=== PATIENT | male | born 1955 | race Hispanic/Latino ===

== ENCOUNTER → 2019-06-12 | Outpatient (CLI) | payer OTHER ==
[2019-06-12 13:40] VITALS: BP 116/71
== END | disposition home or self-care (01) ==
LOC: WHH 09:45
PROVIDERS: ATTEND Podiatrist Foot & Ankle Surgery
DX: E11.621 Type 2 diabetes mellitus with foot ulcer (principal); L97.511 Non-pressure chronic ulcer of other part of right foot limited to breakdown of skin; E11.42 Type 2 diabetes mellitus with diabetic polyneuropathy; E11.51 Type 2 diabetes mellitus with diabetic peripheral angiopathy without gangrene; F17.200 Nicotine dependence, unspecified, uncomplicated; Z95.1 Presence of aortocoronary bypass graft; Z95.0 Presence of cardiac pacemaker
CPT/HCPCS: A4450; A6021; G0463

== ENCOUNTER → 2019-06-19 | Outpatient (CLI) | payer OTHER ==
[2019-06-19 12:22] VITALS: BP 128/75
== END | disposition home or self-care (01) ==
LOC: WHH 10:00
PROVIDERS: ATTEND Podiatrist Foot & Ankle Surgery
DX: E11.621 Type 2 diabetes mellitus with foot ulcer (principal); L97.511 Non-pressure chronic ulcer of other part of right foot limited to breakdown of skin; E11.42 Type 2 diabetes mellitus with diabetic polyneuropathy; E11.51 Type 2 diabetes mellitus with diabetic peripheral angiopathy without gangrene; F17.200 Nicotine dependence, unspecified, uncomplicated; Z95.1 Presence of aortocoronary bypass graft; Z95.0 Presence of cardiac pacemaker
CPT/HCPCS: 15275; A6207; A6209; Q4133

== ENCOUNTER → 2019-06-26 | Outpatient (CLI) | payer OTHER ==
[2019-06-26 13:08] VITALS: BP 131/69
== END | disposition home or self-care (01) ==
LOC: WHH 12:45
PROVIDERS: ATTEND Podiatrist Foot & Ankle Surgery
DX: E11.621 Type 2 diabetes mellitus with foot ulcer (principal); L97.511 Non-pressure chronic ulcer of other part of right foot limited to breakdown of skin; E11.42 Type 2 diabetes mellitus with diabetic polyneuropathy; E11.51 Type 2 diabetes mellitus with diabetic peripheral angiopathy without gangrene; F17.200 Nicotine dependence, unspecified, uncomplicated; Z95.1 Presence of aortocoronary bypass graft; Z95.0 Presence of cardiac pacemaker
CPT/HCPCS: A6209; G0463

== ENCOUNTER → 2019-07-10 | Outpatient (CLI) | payer OTHER ==
[2019-07-10 13:31] VITALS: BP 97/64
== END | disposition home or self-care (01) ==
LOC: WHH 10:00
PROVIDERS: ATTEND Podiatrist Foot & Ankle Surgery
DX: E11.621 Type 2 diabetes mellitus with foot ulcer (principal); L97.511 Non-pressure chronic ulcer of other part of right foot limited to breakdown of skin; E11.42 Type 2 diabetes mellitus with diabetic polyneuropathy; E11.51 Type 2 diabetes mellitus with diabetic peripheral angiopathy without gangrene; F17.200 Nicotine dependence, unspecified, uncomplicated; Z95.1 Presence of aortocoronary bypass graft; Z95.0 Presence of cardiac pacemaker
CPT/HCPCS: 15275; A6209; Q4133

== ENCOUNTER → 2019-07-17 | Outpatient (CLI) | payer OTHER ==
[2019-07-17 13:23] VITALS: BP 140/68
== END | disposition home or self-care (01) ==
LOC: WHH 09:45
PROVIDERS: ATTEND Podiatrist Foot & Ankle Surgery
DX: E11.621 Type 2 diabetes mellitus with foot ulcer (principal); L97.511 Non-pressure chronic ulcer of other part of right foot limited to breakdown of skin; E11.42 Type 2 diabetes mellitus with diabetic polyneuropathy; E11.51 Type 2 diabetes mellitus with diabetic peripheral angiopathy without gangrene; B35.1 Tinea unguium; F17.200 Nicotine dependence, unspecified, uncomplicated; Z95.1 Presence of aortocoronary bypass graft; Z95.0 Presence of cardiac pacemaker
CPT/HCPCS: 15275; A6209; Q4133

== ENCOUNTER → 2019-07-24 | Outpatient (CLI) | payer OTHER ==
[2019-07-24 14:27] VITALS: BP 140/80
== END | disposition home or self-care (01) ==
LOC: WHH 10:00
PROVIDERS: ATTEND Podiatrist Foot & Ankle Surgery
DX: E11.621 Type 2 diabetes mellitus with foot ulcer (principal); L97.511 Non-pressure chronic ulcer of other part of right foot limited to breakdown of skin; E11.42 Type 2 diabetes mellitus with diabetic polyneuropathy; E11.51 Type 2 diabetes mellitus with diabetic peripheral angiopathy without gangrene; F17.200 Nicotine dependence, unspecified, uncomplicated; B35.1 Tinea unguium; Z95.1 Presence of aortocoronary bypass graft; Z95.0 Presence of cardiac pacemaker
CPT/HCPCS: 15275; A6209; L3260; Q4133

== ENCOUNTER → 2019-07-31 | Outpatient (CLI) | payer OTHER ==
[2019-07-31 12:35] VITALS: BP 127/62
== END | disposition home or self-care (01) ==
LOC: WHH 09:45
PROVIDERS: ATTEND Podiatrist Foot & Ankle Surgery
DX: E11.621 Type 2 diabetes mellitus with foot ulcer (principal); L97.511 Non-pressure chronic ulcer of other part of right foot limited to breakdown of skin; E11.51 Type 2 diabetes mellitus with diabetic peripheral angiopathy without gangrene; E11.42 Type 2 diabetes mellitus with diabetic polyneuropathy; F17.200 Nicotine dependence, unspecified, uncomplicated; Z95.0 Presence of cardiac pacemaker
CPT/HCPCS: 15275; A6209; Q4133

== ENCOUNTER → 2019-08-07 | Outpatient (CLI) | payer OTHER ==
[2019-08-07 14:24] VITALS: BP 144/90
== END | disposition home or self-care (01) ==
LOC: WHH 09:50
PROVIDERS: ATTEND Podiatrist Foot & Ankle Surgery
DX: E11.621 Type 2 diabetes mellitus with foot ulcer (principal); L97.511 Non-pressure chronic ulcer of other part of right foot limited to breakdown of skin; E11.51 Type 2 diabetes mellitus with diabetic peripheral angiopathy without gangrene; E11.42 Type 2 diabetes mellitus with diabetic polyneuropathy; I89.0 Lymphedema, not elsewhere classified; F17.200 Nicotine dependence, unspecified, uncomplicated; Z95.0 Presence of cardiac pacemaker; Z95.1 Presence of aortocoronary bypass graft
CPT/HCPCS: 15275; A6209; Q4133

== ENCOUNTER → 2019-08-13 | Outpatient (CLI) | payer OTHER | END | disposition home or self-care (01) | LOC: WHH 13:30 | PROVIDERS: ATTEND Podiatrist Foot & Ankle Surgery | DX: E11.621 Type 2 diabetes mellitus with foot ulcer (principal); L97.511 Non-pressure chronic ulcer of other part of right foot limited to breakdown of skin; E11.42 Type 2 diabetes mellitus with diabetic polyneuropathy; I89.0 Lymphedema, not elsewhere classified; E11.51 Type 2 diabetes mellitus with diabetic peripheral angiopathy without gangrene; F17.200 Nicotine dependence, unspecified, uncomplicated; Z95.1 Presence of aortocoronary bypass graft; Z95.0 Presence of cardiac pacemaker | CPT/HCPCS: 93922 ==

== ENCOUNTER → 2019-08-21 | Outpatient (CLI) | payer OTHER ==
[2019-08-21 13:26] VITALS: BP 156/99
== END | disposition home or self-care (01) ==
LOC: WHH 09:45
PROVIDERS: ATTEND Podiatrist Foot & Ankle Surgery
DX: E11.621 Type 2 diabetes mellitus with foot ulcer (principal); L97.511 Non-pressure chronic ulcer of other part of right foot limited to breakdown of skin; E11.42 Type 2 diabetes mellitus with diabetic polyneuropathy; I89.0 Lymphedema, not elsewhere classified; E11.51 Type 2 diabetes mellitus with diabetic peripheral angiopathy without gangrene; F17.200 Nicotine dependence, unspecified, uncomplicated; Z95.1 Presence of aortocoronary bypass graft
CPT/HCPCS: 15275; A6209; Q4133

== ENCOUNTER → 2019-08-23 | Outpatient (CLI) | payer OTHER | END | disposition home or self-care (01) | LOC: OIH 10:48 | PROVIDERS: ATTEND Internal Medicine | DX: R91.8 Other nonspecific abnormal finding of lung field (principal); I10 Essential (primary) hypertension | CPT/HCPCS: 71046 ==

== ENCOUNTER 2019-09-04 10:30 | Outpatient (CLI) | payer OTHER ==
[2019-09-04 14:08] VITALS: BP 125/62
== END 2019-09-04 15:07 | disposition home or self-care (01) ==
LOC: WHH 10:30
PROVIDERS: ATTEND Podiatrist Foot & Ankle Surgery
DX: E11.621 Type 2 diabetes mellitus with foot ulcer (principal); L97.518 Non-pressure chronic ulcer of other part of right foot with other specified severity; E11.42 Type 2 diabetes mellitus with diabetic polyneuropathy; E11.51 Type 2 diabetes mellitus with diabetic peripheral angiopathy without gangrene; I89.0 Lymphedema, not elsewhere classified; F17.200 Nicotine dependence, unspecified, uncomplicated; Z95.1 Presence of aortocoronary bypass graft
CPT/HCPCS: G0463

== ENCOUNTER 2019-09-08 06:54 | Observation (INO) | payer OTHER ==
[~2019-09-08] VITALS: Ht 180.3 cm; Wt 107.0 kg
[2019-09-08] MEDS ORDERED: ASPIRIN 325 MG TABLET ONE (07:12)
[2019-09-08] MEDS ORDERED: NITROGLYCERIN 1GM/1 INCH PACKET TD ONE (07:13)
[2019-09-08 07:24] LABS: BASOPHILS % (AUTO) 0.7 % (0.0-5.0); EOSINOPHILS % (AUTO) 2.9 % (0.0-8.0); HEMATOCRIT 46.1 % (42-54); LYMPHOCYTES % (AUTO) 28.6 % (21.0-51.0); MEAN CORPUSCULAR HEMOGLOBIN 29.6 pg (27.0-33.0); MEAN CORPUSCULAR HGB CONC 33.6 g/dL (32.0-36.0); MEAN CORPUSCULAR VOLUME 88.3 fL (79-99); MONOCYTES % (AUTO) 6.6 % (3.0-13.0); NEUTROPHILS % (AUTO) 61.2 % (40.0-77.0); PLATELET COUNT (AUTO) 187 K/uL (130-400); RED BLOOD CELL COUNT(AUTO) 5.22 MIL/uL (4.50-6.20); RED CELL DISTRIBUTION WIDTH 14.8 % (11.0-15.5); WHITE BLOOD COUNT (AUTO) 10.2 K/uL (4.8-10.8)
[2019-09-08 07:33] LABS: INR 1.04 (0.85-1.15); PARTIAL THROMBOPLASTIN TIME 29.6 SEC (26.3-35.5); PROTHROMBIN TIME 10.9 SEC (9.6-11.6)
[2019-09-08 07:35] LABS: CREATININE 0.8 mg/dL (0.5-1.5); POTASSIUM 3.9 mmol/L (3.5-5.1)
[2019-09-08 07:42] LABS: ALBUMIN 3.2 g/dL (3.5-5.0); TOTAL PROTEIN, SERUM 7.1 g/dL (6.0-8.3)
[2019-09-08 13:12] LABS: CREATINE KINASE, TOTAL 102 U/L (21-232); MYOGLOBIN 55 ng/mL (10-92); TROPONIN I < 0.04 ng/mL (0.00-0.06)
[2019-09-08 13:30] VITALS: BP 98/61
[2019-09-08 16:00] VITALS: BP 97/64
[2019-09-08 16:31] LABS: CREATINE KINASE, TOTAL 77 U/L (21-232); MYOGLOBIN 67 ng/mL (10-92); TROPONIN I < 0.04 ng/mL (0.00-0.06)
[2019-09-08] MEDS ORDERED: HYDROCODONE/ACETAMINOPHEN 7.5/325 MG TAB PO PRN (17:00)
[2019-09-08] MEDS ORDERED: HYDR-4064 PO (17:16)
[2019-09-08] MEDS ORDERED: PREG200C28 PO (17:16)
[2019-09-08] MEDS ORDERED: GLIM4TAB5 PO (17:16)
[2019-09-08] MEDS ORDERED: PRED5DRO25 OP (17:16)
[2019-09-08] MEDS ORDERED: DULA1.5P SQ (17:16)
[2019-09-08] MEDS ORDERED: CILO100T PO (17:16)
[2019-09-08] MEDS ORDERED: TAMS-1 PO (17:16)
[2019-09-08] MEDS ORDERED: METF-444 PO (17:16)
[2019-09-08] MEDS ORDERED: KETO.5OS OP (17:16)
[2019-09-08] MEDS ORDERED: CLOP75TA14 PO (17:16)
[2019-09-08] MEDS ORDERED: PANT40TA25 PO (17:16)
[2019-09-08] MEDS ORDERED: INSLAN SQ (17:16)
[2019-09-08] MEDS ORDERED: OFLO5DRO21 OT (17:16)
[2019-09-08] MEDS ORDERED: LISI10TA7 PO (17:16)
[2019-09-08] MEDS ORDERED: ATOR40TA69 PO (17:16)
[2019-09-08] MEDS ORDERED: OXYB10TA2 PO (17:21)
[2019-09-08] MEDS ORDERED: AMOX500C2 PO (17:29)
[2019-09-08] MEDS ORDERED: LEVO500T89 PO (17:29)
[2019-09-08 19:00] VITALS: BP 135/80
[2019-09-08 20:18] LABS: CREATINE KINASE, TOTAL 69 U/L (21-232); MYOGLOBIN 56 ng/mL (10-92); TROPONIN I < 0.04 ng/mL (0.00-0.06)
[2019-09-08] MEDS: METFORMIN HCL 500 MG TABLET PO SCH (20:40)
[2019-09-08] MEDS: PANTOPRAZOLE SODIUM 40 MG TABLET.DR PO SCH (20:40)
[2019-09-08] MEDS ORDERED: TAMSULOSIN HCL 0.4 MG CAP.ER.24H PO SCH (21:00)
[2019-09-08] MEDS ORDERED: PREGABALIN 100 MG CAPSULE PO PRN (21:00)
[2019-09-08] MEDS ORDERED: ATORVASTATIN CALCIUM 40 MG TABLET PO SCH (21:00)
[2019-09-09] VITALS: BP 108/60
[2019-09-09 04:00] VITALS: BP 115/57
[2019-09-09 07:28] VITALS: BP 94/53
[2019-09-09] MEDS ORDERED: REGADENOSON 0.4 MG/5 ML PF SYG IVP SCH (07:30)
[2019-09-09] MEDS ORDERED: CLOPIDOGREL BISULFATE 75 MG TAB PO SCH (09:00)
[2019-09-09] MEDS ORDERED: INSULIN GLARGINE 100 UNITS/ML 10 ML VIAL SQ SCH (09:00)
[2019-09-09] MEDS ORDERED: KETOROLAC TROMETHAMINE OPTH 0.5% 5ML DROPS OU SCH (09:00)
[2019-09-09] MEDS ORDERED: LISINOPRIL 10 MG TABLET PO SCH (09:00)
[2019-09-09] MEDS ORDERED: GLIMEPIRIDE 2 MG TABLET PO SCH (09:00)
[2019-09-09] MEDS: METFORMIN HCL 500 MG TABLET PO SCH (09:00)
[2019-09-09] MEDS ORDERED: PREDNISOLONE ACETATE 1% 5ML DROPS.SUSP OP SCH (09:00)
[2019-09-09] MEDS ORDERED: OXYBUTYNIN 5 MG TAB.SR.24H PO SCH (09:00)
[2019-09-09] MEDS ORDERED: ASPIRIN 81MG TAB.CHEW PO SCH (09:00)
[2019-09-09] MEDS ORDERED: CILOSTAZOL 100 MG TAB PO SCH (09:00)
[2019-09-09] MEDS: PANTOPRAZOLE SODIUM 40 MG TABLET.DR PO SCH (09:00)
--- NOTE | 2019-09-09 09:09 | NUR ---
WESLY RECEIVED CALL FORM [employer] [facility] [employer] STATING THEY ARE ATTEMPTING TO PROCEED WITH LEXISCAN BUT PT IS COUGHING TO MUCH. CALL PLACED TO DR RITTER FOR COUGH MEDICATION. NO ANSWER. LEFT MESSAGE. PENDING CB
[2019-09-09 11:49] VITALS: BP 119/68
[2019-09-09] MEDS ORDERED: OFLOXACIN OTIC SCH (15:07)
[2019-09-09 16:38] VITALS: BP 131/76
--- NOTE | 2019-09-09 17:45 | NUR ---
DISCHARGE RECEIVED CALL FROM [employer] STATING NEW ORDER FROM DR RITTER TO DC PT. FOLLOW UP IN 1-2 DAYS R/T TEST RESULTS. PT VERBALIZED UNDERSTANG
[2019-09-15] MEDS ORDERED: Dulaglutide (Trulicity) 1.5 MG IJ SCH (09:00)
== END 2019-09-09 18:20 | disposition home or self-care (01) ==
LOC: EDH 06:54 → EDHIP 11:08 → 4CH 13:12
PROVIDERS: ADMIT Internal Medicine; ATTEND Internal Medicine
DX: I25.10 Atherosclerotic heart disease of native coronary artery without angina pectoris (principal); E11.9 Type 2 diabetes mellitus without complications; I10 Essential (primary) hypertension; J44.9 Chronic obstructive pulmonary disease, unspecified; E78.5 Hyperlipidemia, unspecified; Z87.891 Personal history of nicotine dependence; Z95.0 Presence of cardiac pacemaker
CPT/HCPCS: 36415; 71045; 78452; 80053; 82550 ×4; 82948 ×5; 83874 ×3; 83880; 84484 ×4; 85025; 85610; 85730; 93005; 93017; 93306; 93970; 99284; A9500 ×2; G0378 ×28; J2785; J7510; 96374

== ENCOUNTER → 2019-09-20 | Outpatient (CLI) | payer OTHER ==
[~2019-09-20] MED LIST: AMOX500C2 PO; ATOR40TA69 PO; CILO100T PO; CLOP75TA14 PO; DULA1.5P SQ; GLIM4TAB5 PO; HYDR-4064 PO; INSLAN SQ; KETO.5OS OP; LEVO500T89 PO; LISI10TA7 PO; METF-444 PO; OFLO5DRO21 OT; OXYB10TA2 PO; PANT40TA25 PO; PRED5DRO25 OP; PREG200C28 PO; TAMS-1 PO
== END | disposition home or self-care (01) ==
LOC: OIH 14:14
PROVIDERS: ATTEND Internal Medicine
DX: J44.1 Chronic obstructive pulmonary disease with (acute) exacerbation (principal); I25.10 Atherosclerotic heart disease of native coronary artery without angina pectoris; I73.9 Peripheral vascular disease, unspecified; R10.13 Epigastric pain
CPT/HCPCS: 71046

== ENCOUNTER → 2019-11-26 | Outpatient (CLI) | payer OTHER ==
[~2019-11-26] MED LIST changes: +GLIM4TAB36 PO; -GLIM4TAB5 PO; -OXYB10TA2 PO; +OXYB10TA30 PO
== END | disposition home or self-care (01) ==
LOC: RAH 11:24
PROVIDERS: ATTEND Internal Medicine
DX: I71.4 Abdominal aortic aneurysm, without rupture (principal); N20.0 Calculus of kidney; J98.11 Atelectasis; M47.816 Spondylosis without myelopathy or radiculopathy, lumbar region; I70.0 Atherosclerosis of aorta; Z95.0 Presence of cardiac pacemaker; Z90.49 Acquired absence of other specified parts of digestive tract
CPT/HCPCS: 74176

== ENCOUNTER 2020-10-13 08:47 | Emergency (ER) | payer OTHER ==
[~2020-10-13 08:47] MED LIST changes: -PANT40TA25 PO; +PANT40TA54 PO
[2020-10-13] MEDS ORDERED: SODIUM BICARB 8.4% 50ML SYRINGE IVP ONE (08:48)
== END 2020-10-13 10:34 | disposition expired ==
LOC: EDH 08:47
DX: I46.9 Cardiac arrest, cause unspecified (principal); Z20.828 Contact with and (suspected) exposure to other viral communicable diseases; E11.9 Type 2 diabetes mellitus without complications; J44.9 Chronic obstructive pulmonary disease, unspecified; I10 Essential (primary) hypertension; Z72.0 Tobacco use
CPT/HCPCS: 87426; 92950; 99285; J3490; U0003